=== PATIENT | female | born 1985 | race African-American/Black ===

== ENCOUNTER 2020-11-08 08:19 | Emergency (ER) | payer OTHER ==
[2020-11-08 08:28] VITALS: BP 106/78; PULSE 88; TEMP 98.1; BMI 24.6
[2020-11-08] MEDS ORDERED: LIDOCAINE VISCOUS 2% ORAL/TOP 20 ML UNIT-DOSE CUP MM ONE (09:05)
[2020-11-08] MEDS ORDERED: DEXAMETHASONE SOD PHOSPHATE 10 MG/1 ML VIAL IVPUSH ONE (09:09)
[2020-11-08] MEDS ORDERED: ACETAMINOPHEN 1000 MG/100 ML VIAL (NON FORMULARY) IVPB ONE (09:11)
[2020-11-08] MEDS ORDERED: SODIUM CHLORIDE 0.9% 500 ML INFUS.BAG IV ONE (09:11)
[2020-11-08] MEDS ORDERED: LIDOCAINE VISCOUS 2% ORAL/TOP 20 ML UNIT-DOSE CUP ONE (09:36)
[2020-11-08] MEDS ORDERED: ACETAMINOPHEN INJECTION 100 ML IVPB ONE (09:36)
[2020-11-08] MEDS ORDERED: DEXAMETHASONE SOD PHOSPHATE 10 MG/1 ML VIAL ONE (09:36)
[2020-11-08 10:11] LABS: BASO % 1.4 % (0-2.0); EOS % 0.9 % (0-4.5); HEMATOCRIT 35.7 % (32.4-45.2); HEMOGLOBIN 11.2 GM/dL (10.7-15.3); LYMPH % 13.1 % (8-40); MCH 29.3 pg (25.7-33.7); MCHC 31.5 g/dl (32.0-36.0); MEAN CELL VOLUME 92.9 fl (80-96); MEAN PLT VOLUME 9.3 fl (7.5-11.1); MONO % 7.2 % (3.8-10.2); NEUT % 77.4 % (42.8-82.8); PLATELET COUNT 246 K/MM3 (134-434); RBC 3.84 M/mm3 (3.60-5.2); RDW 13.9 % (11.6-15.6); WHITE BLOOD COUNT 12.1 K/mm3 (4.0-10.0)
[2020-11-08] MEDS ORDERED: CLINDAMYCIN 600MG PREMIX IVPB 600 MG/50 ML BAG IVPB ONE ×2 (10:50→11:15)
[2020-11-08 11:23] LABS: POTASSIUM 4.5 mmol/L (3.5-5.1)
[2020-11-08 11:24] LABS: CALCIUM 9.9 mg/dL (8.5-10.1)
[2020-11-08 11:25] LABS: BLOOD UREA NITROGEN 8.7 mg/dL (7-18)
[2020-11-08 11:28] LABS: CREATININE 0.8 mg/dL (0.55-1.3)
[2020-11-08 11:30] LABS: BILIRUBIN,TOTAL 0.5 mg/dL (0.2-1); TOT PROT 7.9 g/dl (6.4-8.2)
== END 2020-11-08 15:50 | disposition home or self-care (01) ==
LOC: JER 08:19
PROC: 3E03329 Introduction of Other Anti-infective into Peripheral Vein, Percutaneous Approach (ICD-10-PCS; principal; 2020-11-08)
PROC: 3E033NZ Introduction of Analgesics, Hypnotics, Sedatives into Peripheral Vein, Percutaneous Approach (ICD-10-PCS; 2020-11-08)
PROC: 3E033GC Introduction of Other Therapeutic Substance into Peripheral Vein, Percutaneous Approach (ICD-10-PCS; 2020-11-08)
DX: J36 Peritonsillar abscess (principal)
CPT/HCPCS: 36415; 70491-TC; 80053; 84703; 85025; 99285-25; J0131; J1100; Q9967

== ENCOUNTER 2022-02-06 16:11 | Emergency (ER) | payer OTHER ==
[2022-02-06 16:59] VITALS: BP 112/67; PULSE 81; TEMP 98.9; BMI 24.6
== END 2022-02-06 18:01 | disposition home or self-care (01) ==
LOC: JER 16:11
DX: L76.21 Postprocedural hemorrhage of skin and subcutaneous tissue following a dermatologic procedure (principal)
CPT/HCPCS: 99283-25

== ENCOUNTER 2022-11-03 20:04 | Emergency (ER) | payer OTHER ==
[2022-11-03 20:14] VITALS: RESP 18; BMI 26.7
[2022-11-03] MEDS ORDERED: DEXAMETHASONE SOD PHOSPHATE 10 MG/1 ML VIAL IVPUSH ONE (21:10)
[2022-11-03] MEDS ORDERED: LACTATED RINGERS SOLUTION 1000 ML INFUS.BAG IV ONE (21:11)
[2022-11-03] MEDS ORDERED: RACEPINEPHRINE IH SOL 2.25% 11.25 MG/0.5 ML VIAL IH ONE (21:22)
[2022-11-03] MEDS ORDERED: KETOROLAC TROMETHAMINE 15 MG/ML VIAL IVPUSH ONE (21:23)
[2022-11-03] MEDS ORDERED: DEXAMETHASONE SOD PHOSPHATE 10 MG/1 ML VIAL ONE (21:51)
[2022-11-03] MEDS ORDERED: RACEPINEPHRINE IH SOL 2.25% 11.25 MG/0.5 ML VIAL NEB ONE (21:51)
[2022-11-03] MEDS ORDERED: KETOROLAC TROMETHAMINE 15 MG/ML VIAL ONE (21:52)
[2022-11-03] MEDS ORDERED: CLINDAMYCIN 600MG PREMIX IVPB 600 MG/50 ML BAG IVPB ONE ×2 (22:01→22:20)
[2022-11-03 22:09] LABS: BASO % 0.7 % (0-2.0); EOS % 0.1 % (0-4.5); HEMATOCRIT 37.7 % (32.4-45.2); HEMOGLOBIN 11.9 GM/dL (10.7-15.3); LYMPH % 10.8 % (8-40); MCH 28.6 pg (25.7-33.7); MCHC 31.4 g/dl (32.0-36.0); MEAN CELL VOLUME 90.9 fl (80-96); MEAN PLT VOLUME 8.7 fl (7.5-11.1); MONO % 7.1 % (3.8-10.2); NEUT % 81.3 % (42.8-82.8); PLATELET COUNT 240 10^3/uL (134-434); RBC 4.15 M/mm3 (3.60-5.2); WHITE BLOOD COUNT 14.8 K/mm3 (4.0-10.0)
[2022-11-03 22:10] LABS: INR 1.13 (0.83-1.09)
[2022-11-03 22:13] LABS: ACTIVATED PTT 29.5 SECONDS (25.2-36.5)
[2022-11-03 22:23] LABS: CHLORIDE 102 mmol/L (98-107); SODIUM 133 mmol/L (136-145)
[2022-11-03 22:25] LABS: CALCIUM 9.8 mg/dL (8.5-10.1)
[2022-11-03 22:26] LABS: ALBUMIN 3.8 g/dl (3.4-5.0); ANION GAP 4 MMOL/L (8-16); BLOOD UREA NITROGEN 8.8 mg/dL (7-18); CO2 27 mmol/L (21-32); GLUCOSE,RANDOM 104 mg/dL (74-106)
[2022-11-03 22:29] LABS: CREATININE 0.8 mg/dL (0.55-1.3); SGOT/AST 17 U/L (15-37)
[2022-11-03 22:31] LABS: TOT PROT 7.8 g/dl (6.4-8.2)
[2022-11-03 22:32] LABS: ALK PHOS 109 U/L (45-117)
[2022-11-03 22:41] LABS: MAGNESIUM 1.9 mg/dL (1.8-2.4)
[2022-11-03 22:45] LABS: PHOSPHOROUS 3.6 mg/dL (2.5-4.9)
[2022-11-03 23:26] LABS: BILIRUBIN,TOTAL 0.7 mg/dL (0.2-1); SGPT/ALT 14 U/L (13-61)
[2022-11-03] MEDS ORDERED: CEFTRIAXONE 1,000 MG in DEXTROSE 5%-WATER - 50 ML IVPB ONE (23:48)
[2022-11-04] MEDS ORDERED: CEFTRIAXONE 1 GM/50 ML BAG ONE (00:55)
[2022-11-04 01:04] VITALS: TEMP 98.4
[2022-11-04 02:33] VITALS: BP 109/69; PULSE 80
== END 2022-11-04 02:25 | disposition short-term general hospital (02) ==
LOC: JER 20:04 → JERFT 20:04 → JER 11-04 02:25
PROC: 3E033GC Introduction of Other Therapeutic Substance into Peripheral Vein, Percutaneous Approach (ICD-10-PCS; principal; 2022-11-03)
DX: J36 Peritonsillar abscess (principal); G93.89 Other specified disorders of brain
CPT/HCPCS: 0241U-QW; 36415; 70450-TC; 70491-TC; 80053; 80307; 83735; 84100; 84702; 85025; 85610; 85730; 86850; 86900; 86901; 87651; 99291; 99292; J1100; Q9967

== ENCOUNTER 2023-08-01 21:29 | Inpatient (IN) | payer OTHER ==
[2023-08-01 21:38] VITALS: BMI 26.7
[2023-08-01] MEDS ORDERED: ACETAMINOPHEN 1000 MG/100 ML BAG IVPB ONE (22:19)
[2023-08-01] MEDS ORDERED: SODIUM CHLORIDE 0.9% 500 ML INFUS.BAG IV ONE (22:19)
[2023-08-01] MEDS ORDERED: ACETAMINOPHEN INJECTION 100 ML IVPB ONE (22:42)
[2023-08-01 23:37] LABS: BASO % 0.7 % (0-2.0); EOS % 0.3 % (0-4.5); HEMATOCRIT 30.7 % (32.4-45.2); HEMOGLOBIN 10.1 GM/dL (10.7-15.3); LYMPH % 26.8 % (8-40); MCHC 32.8 g/dl (32.0-36.0); MEAN CELL VOLUME 85.5 fl (80-96); MEAN PLT VOLUME 8.5 fl (7.5-11.1); MONO % 8.9 % (3.8-10.2); NEUT % 63.3 % (42.8-82.8); PLATELET COUNT 291 10^3/uL (134-434); RBC 3.59 M/mm3 (3.60-5.2); RDW 14.8 % (11.6-15.6)
[2023-08-01 23:55] LABS: POTASSIUM 3.5 mmol/L (3.5-5.1)
[2023-08-01 23:57] LABS: CALCIUM 9.1 mg/dL (8.5-10.1)
[2023-08-01 23:58] LABS: ALBUMIN 3.4 g/dl (3.4-5.0); BLOOD UREA NITROGEN 7.2 mg/dL (7-18); MAGNESIUM 1.8 mg/dL (1.8-2.4)
[2023-08-02 00:01] LABS: CREATININE 0.7 mg/dL (0.55-1.3)
[2023-08-02 00:03] LABS: BILIRUBIN,TOTAL 0.4 mg/dL (0.2-1); TOT PROT 7.6 g/dl (6.4-8.2)
[2023-08-02 03:34] LABS: EPI CELLS >36 /uL (0-25.1); HYALINE CASTS 0 /uL (0-3.1); PH,URINE 6.5 (5.0-8.0); URINE APPEARANCE CLEAR; URINE BACTERIA 197 /uL (0-1359); URINE BILIRUBIN NEGATIVE (NEGATIVE); URINE COLOR YELLOW; URINE GLUCOSE (UA) NEGATIVE (NEGATIVE); URINE KETONE NEGATIVE (NEGATIVE); URINE LEUK ESTERASE 2+ (NEGATIVE); URINE NITRITE NEGATIVE (NEGATIVE); URINE PROTEIN NEGATIVE (NEGATIVE); URINE RBC 11 /uL (0-23.9); URINE UROBILINOGEN 0.2 mg/dL (0.2-1.0); URINE WBC 34 /uL (0-25.8)
[2023-08-02 03:50] LABS: METHADONE, UR NEGATIVE (NEGATIVE); PHENCYCLIDINE,URINE NEGATIVE (NEGATIVE); URINE BENZODIAZEPINES NEGATIVE (NEGATIVE)
[2023-08-02 03:51] LABS: COCAINE, UR NEGATIVE (NEGATIVE); OPIATES, URI NEGATIVE (NEGATIVE); URINE BARBITURATES NEGATIVE (NEGATIVE)
[2023-08-02 03:52] LABS: URINE AMPHETAMINES NEGATIVE (NEGATIVE)
[2023-08-02] MEDS: ENOXAPARIN NA (PORCINE) 40 MG/0.4 ML DISP.SYRIN SQ SCH (11:56)
[2023-08-02] MEDS ORDERED: ACETAMINOPHEN 325 MG TABLET (FP) ONE (12:12)
[2023-08-02] MEDS: SODIUM CHLORIDE 1,000 ML IV SCH (12:15)
[2023-08-02] MEDS: ACETAMINOPHEN 325 MG TABLET (FP) PO PRN (12:16)
[2023-08-02 12:37] LABS: EOS % 0.2 % (0-4.5); HEMATOCRIT 29.5 % (32.4-45.2); HEMOGLOBIN 9.8 GM/dL (10.7-15.3); LYMPH % 13.5 % (8-40); MCH 28.1 pg (25.7-33.7); MCHC 33.1 g/dl (32.0-36.0); MEAN PLT VOLUME 8.6 fl (7.5-11.1); MONO % 6.1 % (3.8-10.2); NEUT % 79.2 % (42.8-82.8); PLATELET COUNT 301 10^3/uL (134-434); RBC 3.47 M/mm3 (3.60-5.2); RDW 14.8 % (11.6-15.6); WHITE BLOOD COUNT 7.4 K/mm3 (4.0-10.0)
[2023-08-03] MEDS: SODIUM CHLORIDE 1,000 ML IV SCH ×2 (05:34→17:54)
[2023-08-03] MEDS: ACETAMINOPHEN 325 MG TABLET (FP) PO PRN (05:36)
[2023-08-03 10:18] LABS: HEMATOCRIT 31.3 % (32.4-45.2); HEMOGLOBIN 10.2 GM/dL (10.7-15.3); MCH 27.8 pg (25.7-33.7); MCHC 32.7 g/dl (32.0-36.0); MEAN CELL VOLUME 84.9 fl (80-96); MEAN PLT VOLUME 8.6 fl (7.5-11.1); PLATELET COUNT 313 10^3/uL (134-434); RBC 3.69 M/mm3 (3.60-5.2); RDW 15.1 % (11.6-15.6); WHITE BLOOD COUNT 7.5 K/mm3 (4.0-10.0)
[2023-08-03 10:23] LABS: INR 1.21 (0.83-1.09)
[2023-08-03 10:26] LABS: ACTIVATED PTT 31.6 SECONDS (25.2-36.5)
[2023-08-03 11:19] LABS: POTASSIUM 3.8 mmol/L (3.5-5.1)
[2023-08-03 11:36] LABS: ALBUMIN 3.5 g/dl (3.4-5.0); BLOOD UREA NITROGEN 5.4 mg/dL (7-18)
[2023-08-03 11:37] LABS: CALCIUM 9.5 mg/dL (8.5-10.1)
[2023-08-03 11:39] LABS: CREATININE 0.7 mg/dL (0.55-1.3)
[2023-08-03 11:40] LABS: PHOSPHOROUS 4.8 mg/dL (2.5-4.9)
[2023-08-03 11:41] LABS: TOT PROT 7.6 g/dl (6.4-8.2)
[2023-08-03] MEDS: ENOXAPARIN NA (PORCINE) 40 MG/0.4 ML DISP.SYRIN SQ SCH (12:13)
[2023-08-03] MEDS: CEFTRIAXONE 2 GM in DEXTROSE 5%-WATER 100 ML IVPB SCH (17:06)
[2023-08-03] MEDS ORDERED: DEXTROSE 5%-NORMAL SALINE 1,000 ML IV SCH (19:15)
[2023-08-03] MEDS ORDERED: ACETAMINOPHEN 1000 MG/100 ML BAG IVPB ONE (19:20)
[2023-08-04] MEDS: ACETAMINOPHEN 325 MG TABLET (FP) PO PRN (04:52)
[2023-08-04] MEDS ORDERED: ACETAMINOPHEN 650 MG SUPP.RECT RC ONE (05:03)
[2023-08-04] MEDS ORDERED: methylPREDNISolone NA SUCC 1000 MG/8 ML VIAL IVPB ONE (09:06)
[2023-08-04] MEDS: CEFTRIAXONE 2 GM in DEXTROSE 5%-WATER 100 ML IVPB SCH (10:27)
[2023-08-04] MEDS ORDERED: METHYLPREDNISOLONE NA SUCC 1,000 MG in DEXTROSE 5%-WATER - 250 ML IVPB ONE (11:00)
[2023-08-04 11:23] VITALS: RESP 14
[2023-08-04 11:31] VITALS: BP 113/84; PULSE 93; TEMP 98.4
== END 2023-08-04 11:44 | disposition short-term general hospital (02) | DRG 58 ==
LOC: JER 21:29 → OBSVTOIN 08-02 01:43 → JERBED 08-02 01:43 → J6S 08-02 20:46
PROVIDERS: ADMIT Internal Medicine; ATTEND Internal Medicine
DX: D49.6 Neoplasm of unspecified behavior of brain (principal); G35 Multiple sclerosis; G91.9 Hydrocephalus, unspecified; G93.40 Encephalopathy, unspecified; F12.90 Cannabis use, unspecified, uncomplicated; J45.909 Unspecified asthma, uncomplicated; H53.2 Diplopia; R45.1 Restlessness and agitation; R47.1 Dysarthria and anarthria; R50.9 Fever, unspecified; F17.210 Nicotine dependence, cigarettes, uncomplicated; G43.909 Migraine, unspecified, not intractable, without status migrainosus; G25.81 Restless legs syndrome; N39.0 Urinary tract infection, site not specified; B96.4 Proteus (mirabilis) (morganii) as the cause of diseases classified elsewhere
CPT/HCPCS: 36415; 70450-TC; 70553-TC; 71045-TC-FY; 72170-TC-FY; 80053; 80307; 81003; 83605; 83735; 84100; 84703; 85025; 85027; 85610; 85651; 85730; 86140; 87040; 87086; 87186; 87635; 93005; 93010; 99285-25; C1887

== ENCOUNTER 2024-02-29 13:27 | Emergency (ER) | payer OTHER ==
[2024-02-29 14:21] VITALS: BMI 31.2
[2024-02-29 15:55] VITALS: BP 94/64; PULSE 89; RESP 18; TEMP 98.6
== END 2024-02-29 17:27 | disposition left against medical advice (07) ==
LOC: JER 13:27
DX: O99.891 Other specified diseases and conditions complicating pregnancy (principal); M79.671 Pain in right foot; M79.672 Pain in left foot; R53.1 Weakness; Z3A.00 Weeks of gestation of pregnancy not specified
CPT/HCPCS: 70450-TC; 82962; 93005; 93010; 99285-25